=== PATIENT | female | born 2000 | race Caucasian/White ===

== ENCOUNTER 2021-01-04 03:26 | Emergency (ER) | payer OTHER ==
[2021-01-04 03:34] VITALS: TEMP 97.9; BMI 20.3
[2021-01-04] MEDS ORDERED: LACTATED RINGERS SOLUTION 1,000 ML/1,000 ML INFUS.BAG IV STA ×2 (03:43→04:52)
[2021-01-04 04:51] VITALS: BP 105/67; PULSE 80
[2021-01-04 04:54] LABS: BASO % 0.6 % (0-2.0); EOS % 0.9 % (0-4.5); HEMATOCRIT 38.3 % (32.4-45.2); HEMOGLOBIN 12.9 GM/dL (10.7-15.3); LYMPH % 35.7 % (8-40); MCHC 33.7 g/dl (32.0-36.0); MEAN CELL VOLUME 91.9 fl (80-96); MEAN PLT VOLUME 8.4 fl (7.5-11.1); MONO % 8.8 % (3.8-10.2); PLATELET COUNT 274 K/MM3 (134-434); RBC 4.16 M/mm3 (3.60-5.2); RDW 13.2 % (11.6-15.6); WHITE BLOOD COUNT 8.9 K/mm3 (4.0-10.0)
[2021-01-04 05:00] LABS: URINE APPEARANCE TURBID; URINE BILIRUBIN NEGATIVE (NEGATIVE); URINE COLOR YELLOW; URINE GLUCOSE (UA) NEGATIVE (NEGATIVE); URINE KETONE NEGATIVE (NEGATIVE); URINE LEUK ESTERASE NEGATIVE (NEGATIVE); URINE NITRITE NEGATIVE (NEGATIVE); URINE PROTEIN NEGATIVE (NEGATIVE); URINE UROBILINOGEN 0.2 mg/dL (0.2-1.0)
[2021-01-04 05:04] LABS: CALCIUM 9.2 mg/dL (8.5-10.1)
[2021-01-04 05:05] LABS: ALBUMIN 3.9 g/dl (3.4-5.0); BLOOD UREA NITROGEN 12.8 mg/dL (7-18); MAGNESIUM 2.1 mg/dL (1.8-2.4)
[2021-01-04 05:08] LABS: CREATININE 0.8 mg/dL (0.55-1.3)
[2021-01-04 05:09] LABS: BILIRUBIN,TOTAL 0.5 mg/dL (0.2-1)
[2021-01-04 05:10] LABS: TOT PROT 6.9 g/dl (6.4-8.2)
== END 2021-01-04 05:41 | disposition home or self-care (01) ==
LOC: FER 03:26
PROC: 3E0337Z Introduction of Electrolytic and Water Balance Substance into Peripheral Vein, Percutaneous Approach (ICD-10-PCS; principal; 2021-01-04)
PROC: 3E0337Z Introduction of Electrolytic and Water Balance Substance into Peripheral Vein, Percutaneous Approach (ICD-10-PCS; 2021-01-04)
DX: R00.2 Palpitations (principal)
CPT/HCPCS: 36415; 80053; 81003; 82550; 83735; 84100; 84443; 84484; 84703; 85025; 87086; 93005; 99284-25

== ENCOUNTER 2021-12-06 00:44 | Emergency (ER) | payer OTHER ==
[2021-12-06] MEDS ORDERED: SODIUM CHLORIDE 1,000 ML IV ONE (00:47)
[2021-12-06] MEDS ORDERED: ONDANSETRON 4 MG/2 ML VIAL IVPB ONE (00:48)
[2021-12-06 00:51] VITALS: BP 124/80; PULSE 96; TEMP 97.7; BMI 28.3
[2021-12-06] MEDS ORDERED: ONDANSETRON 4 MG/2 ML VIAL ONE (00:53)
[2021-12-06 02:05] LABS: BASO % 0.2 % (0-2.0); EOS % 0.5 % (0-4.5); HEMATOCRIT 46.2 % (32.4-45.2); HEMOGLOBIN 15.7 GM/dL (10.7-15.3); LYMPH % 14.3 % (8-40); MCH 30.4 pg (25.7-33.7); MCHC 33.9 g/dl (32.0-36.0); MEAN CELL VOLUME 89.6 fl (80-96); MEAN PLT VOLUME 9.4 fl (7.5-11.1); MONO % 6.3 % (3.8-10.2); NEUT % 78.7 % (42.8-82.8); PLATELET COUNT 291 10^3/uL (134-434); RBC 5.15 M/mm3 (3.60-5.2); RDW 12.3 % (11.6-15.6); WHITE BLOOD COUNT 12.2 K/mm3 (4.0-10.0)
[2021-12-06 02:24] LABS: ALBUMIN 4.8 g/dl (3.4-5.0); BLOOD UREA NITROGEN 10.4 mg/dL (7-18)
[2021-12-06 02:27] LABS: CREATININE 0.9 mg/dL (0.55-1.3)
[2021-12-06 02:29] LABS: BILIRUBIN,TOTAL 0.7 mg/dL (0.2-1)
[2021-12-06 02:47] LABS: EPI CELLS >36 /uL (0-25.1); HYALINE CASTS 1 /uL (0-3.1); PH,URINE 8.5 (5.0-8.0); URINE APPEARANCE CLEAR; URINE BACTERIA 4981 /uL (0-1359); URINE BILIRUBIN NEGATIVE (NEGATIVE); URINE COLOR YELLOW; URINE GLUCOSE (UA) NEGATIVE (NEGATIVE); URINE KETONE TRACE (NEGATIVE); URINE LEUK ESTERASE NEGATIVE (NEGATIVE); URINE NITRITE NEGATIVE (NEGATIVE); URINE PROTEIN 1+ (NEGATIVE); URINE RBC 9 /uL (0-23.9); URINE WBC 7 /uL (0-25.8)
[2021-12-06] MEDS ORDERED: METOCLOPRAMIDE HCL 10 MG TABLET (FP) PO ONE ×2 (03:32→03:34)
== END 2021-12-06 03:41 | disposition home or self-care (01) ==
LOC: FER 00:44
PROC: 3E033GC Introduction of Other Therapeutic Substance into Peripheral Vein, Percutaneous Approach (ICD-10-PCS; principal; 2021-12-06)
DX: R11.2 Nausea with vomiting, unspecified (principal)
CPT/HCPCS: 36415; 80053; 81003; 84703; 85025; 99284-25

== ENCOUNTER 2021-12-13 03:21 | Emergency (ER) | payer OTHER ==
[2021-12-13 03:32] VITALS: BP 105/70; PULSE 98; TEMP 98.2; BMI 28.3
[2021-12-13] MEDS ORDERED: CEPHALEXIN 250 MG/5 ML ORAL SUSPENSION PO ONE (03:36)
[2021-12-13] MEDS ORDERED: DIPHTH,PERTUSS(ACELL),TET 0.5 ML DISP.SYRIN IM ONE ×2 (03:37→03:39)
[2021-12-13] MEDS ORDERED: CEPHALEXIN MONOHYDRATE 500 MG CAPSULE (UD) ONE (03:38)
[2021-12-13] MEDS ORDERED: CEPHALEXIN MONOHYDRATE 500 MG CAPSULE (UD) PO ONE (03:38)
== END 2021-12-13 04:52 | disposition home or self-care (01) ==
LOC: FER 03:21
PROC: 0HQ1XZZ Repair Face Skin, External Approach (ICD-10-PCS; principal; 2021-12-13)
PROC: 3E0234Z Introduction of Serum, Toxoid and Vaccine into Muscle, Percutaneous Approach (ICD-10-PCS; 2021-12-13)
DX: S01.81XA Laceration without foreign body of other part of head, initial encounter (principal); W22.8XXA Striking against or struck by other objects, initial encounter
CPT/HCPCS: 90715; 99283-25

== ENCOUNTER 2021-12-14 12:37 | Emergency (ER) | payer OTHER ==
[2021-12-14] MEDS ORDERED: ONDANSETRON *ODT* 4 MG TABLET SL ONE (12:52)
[2021-12-14 12:53] VITALS: BP 124/81; PULSE 92; TEMP 98.5; BMI 24.3
[2021-12-14] MEDS ORDERED: ONDANSETRON *ODT* 4 MG TABLET ONE (12:54)
== END 2021-12-14 14:37 | disposition home or self-care (01) ==
LOC: FER 12:37
DX: S06.0X0A Concussion without loss of consciousness, initial encounter (principal); W01.0XXA Fall on same level from slipping, tripping and stumbling without subsequent striking against object, initial encounter
CPT/HCPCS: 70450-TC; 99284-25; Q0162

== ENCOUNTER 2023-05-19 01:13 | Emergency (ER) | payer OTHER ==
[2023-05-19 01:20] VITALS: BP 138/86; PULSE 67; RESP 19; TEMP 98.1; BMI 21.3
[2023-05-19] MEDS ORDERED: DIPHTH,PERTUSS(ACELL),TET 0.5 ML DISP.SYRIN IM ONE (01:32)
[2023-05-19] MEDS ORDERED: IBUPROFEN 600 MG TABLET (FP) PO ONE (01:32)
[2023-05-19] MEDS ORDERED: SODIUM CHLORIDE 1,000 ML IV ONE (01:47)
[2023-05-19 02:43] LABS: HEMATOCRIT 37.5 % (32.4-45.2); HEMOGLOBIN 13.1 GM/dL (10.7-15.3); MCH 31.1 pg (25.7-33.7); MCHC 34.8 g/dl (32.0-36.0); MEAN CELL VOLUME 89.5 fl (80-96); MEAN PLT VOLUME 8.4 fl (7.5-11.1); PLATELET COUNT 267 10^3/uL (134-434); RBC 4.19 M/mm3 (3.60-5.2); RDW 12.7 % (11.6-15.6); WHITE BLOOD COUNT 7.8 K/mm3 (4.0-10.0)
[2023-05-19 02:59] LABS: POTASSIUM 3.9 mmol/L (3.5-5.1)
[2023-05-19 03:01] LABS: CALCIUM 9.4 mg/dL (8.5-10.1)
[2023-05-19 03:02] LABS: BLOOD UREA NITROGEN 12.9 mg/dL (7-18); MAGNESIUM 2.1 mg/dL (1.8-2.4)
[2023-05-19 03:05] LABS: CREATININE 0.8 mg/dL (0.55-1.3); PHOSPHOROUS 4.2 mg/dL (2.5-4.9)
[2023-05-19 03:06] LABS: BILIRUBIN,TOTAL 0.9 mg/dL (0.2-1); TOT PROT 6.5 g/dl (6.4-8.2)
== END 2023-05-19 03:31 | disposition home or self-care (01) ==
LOC: FER 01:13
PROC: 3E0337Z Introduction of Electrolytic and Water Balance Substance into Peripheral Vein, Percutaneous Approach (ICD-10-PCS; principal; 2023-05-19)
DX: R07.89 Other chest pain (principal); R00.0 Tachycardia, unspecified; F41.0 Panic disorder [episodic paroxysmal anxiety]
CPT/HCPCS: 36415; 70450-TC; 80053; 82550; 83735; 84100; 84484; 85027; 93005; 99285-25